=== PATIENT | female | born 1990 | race African-American/Black ===

== ENCOUNTER 2020-05-20 01:11 | Emergency (ER) | payer OTHER ==
[~2020-05-20] VITALS: Ht 165.1 cm; Wt 73.0 kg
[2020-05-20 01:41] VITALS: BP 122/80
== END 2020-05-20 01:30 | disposition home or self-care (01) ==
LOC: ER 01:11
DX: J45.909 Unspecified asthma, uncomplicated (principal); F17.200 Nicotine dependence, unspecified, uncomplicated
CPT/HCPCS: 99283